=== PATIENT | male | born 2005 | race Caucasian/White ===

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

== ENCOUNTER 2024-07-22 07:41 | Emergency (ER) | payer OTHER, SELFPAY ==
[2024-07-22 07:42] VITALS: BP 119/64; PULSE 97; RESP 18; TEMP 37.6; O2SAT 95; BMI 17.7
--- NOTE | 2024-07-22 08:20 | EDS_ITS ---
HPI History of Present Illness Chief Complaint: Lower Extremity Injury Informant: patient and parent Onset/Context/Timing Onset: Yesterday Context: Gradual Onset Timing: Continuous Quality: Cramping Location: Lower extremities Worsened by: Nothing Relieved by: Nothing Narrative Narrative: Patient presents with lower extremity pain, aching, and cramping that began yesterday. Patient states he was diagnosed with sinusitis yesterday and started on Augmentin. Patient states he has general myalgias with this. Patient admits to a fever up to 101 at home. Patient admits to a sore throat. Patient admits to a cough but denies any shortness of breath. Patient describes his pain as cramping. Patient states that his it is lower extremities. Patient states she has not been eating much or drinking much fluid because of the sore throat. Patient and mother are concerned for possible dehydration. PFSH PFSH Medical History no medical history no medical history Home Medications ?Medication ?Instructions ?Recorded ?Last Taken ?Type NK 07/22/24 Unknown History Allergy/AdvReac Type Severity Reaction Status Date / Time No Known Allergies Allergy Verified 07/22/24 07:41 Surgical History no surgical history no surgical history Social History (Updated 07/22/24 @ 08:[address] Ming Celaya, DO) Electronic Cigarette Use: with nicotine alcohol intake: current alcohol intake frequency: a few times a month substance use type: marijuana ROS ROS ED Constitutional Constitutional ED: Reports chills and fever(s) Eyes Eyes: Denies blurry vision or change in vision ENT ENT ED: Reports sore throat; Denies rhinorrhea Cardiovascular Cardiovascular: Denies chest pain or palpitations Respiratory/Chest Respiratory/Chest: Reports cough; Denies dyspnea Gastrointestinal Gastrointestinal: Denies nausea or vomiting Genitourinary Genitourinary ED: Denies dysuria or hematuria Musculoskeletal Musculoskeletal: Reports back pain, myalgias and neck pain Integumentary Denies abscess or rash Neurologic Neurologic: Reports headache(s) and weakness Allergic/Immunologic Allergic/Immunologic ED: Denies mouth swelling or urticaria EXAM Physical Exam Const Vital Signs: 07/22/24 07:42 07/22/24 07:55 07/22/24 09:05 Temperature 99.6 F H 103 F H Temperature Source Temporal Oral Pulse Rate 97 Respiratory Rate 18 Respiratory Effort Normal Non-Labored Blood Pressure 119/64 Blood Pressure Mean 82 Pulse Ox 95 Oxygen Delivery Method Room Air 07/22/24 09:41 Temperature 99.9 F H Temperature Source Oral Pulse Rate 84 Respiratory Rate 20 H Respiratory Effort Blood Pressure 113/51 L Blood Pressure Mean 71 Pulse Ox 95 Oxygen Delivery Method Room Air Positive well nourished and well developed General Appearance ED: well developed and NAD HEENT Reports moist mucous membranes Neck supple and no JVD Resp normal respiratory effort and clear to auscultation bilaterally Cardio regular rate and regular rhythm GI non-tender and non-distended Palpation: soft Extremity normal to inspection General Extremety ED: Negative for edema or tenderness General Extremity: Negative for edema Neuro oriented x3, CN's II-XII intact bilaterally and no sensory deficits noted Sensorium / Orientation: alert Motor Exam: strength 5/5 throughout Psych mental status grossly normal MDM MDM MDM Narrative Medical decision making narrative: Differential diagnosis includes viral illness, dehydration, electrolyte abnormality, pneumonia, and bronchitis. COVID-19, influenza, and RSV PCR will be obtained to assess for viral illness. CBC will be obtained to assess for leukocytosis and anemia. Basic metabolic profile will be obtained to assess for electrolyte abnormality and renal function. Chest x-ray will be obtained to assess for pneumonia and bronchitis. Lab Data Attestation: I reviewed the patient's lab results. Lab results narrative: CBC was reviewed. White blood cell count was slightly low at 3.0. Hemoglobin was 12.9 and hematocrit was 37.0. Platelets were normal. Basic metabolic profile was reviewed and was essentially within normal limits. COVID-19 PCR was reviewed and was negative. Influenza PCR was reviewed and was positive for influenza A and negative for influenza B. RSV PCR was reviewed and was negative. Labs: Laboratory Results - last 24 hr 07/22/24 09:15 WBC 3.0 L RBC 4.30 L Hgb 12.9 L Hct 37.0 L MCV 86.0 MCH 30.0 MCHC 34.9 RDW Std Deviation 37.8 RDW Coeff of Virgen 12.1 Plt Count 160 MPV 11.9 Immature Gran % (Auto) 0.300 Neut % (Auto) 61.1 Lymph % (Auto) 13.1 L Canadian % (Auto) 25.2 H Eos % (Auto) 0.0 Baso % (Auto) 0.3 Absolute Neuts (auto) 1.8 L Absolute Lymphs (auto) 0.39 L Nucleated RBC % 0 Sodium 139 Potassium 3.8 Chloride 108 H Carbon Dioxide 25.0 Anion Gap 6 BUN 15 Creatinine 1.17 Estim Creat Clear Calc 86.97 Est GFR (MDRD) Af Amer 102 Est GFR (MDRD) Non-Af 84 BUN/Creatinine Ratio 12.8 Glucose 103 Calcium 8.9 Radiography Chest X-Ray - ED: 2 View, Read by ED Physician, Read by Radiologist and No Acute Disease Diagnostic Testing: Clinical Impression(s) from Imaging Studies Chest X-Ray 07/22/24 09:35 IMPRESSION: No acute cardiopulmonary process. Reading Location: [facility] [place] and lateral chest x-ray was obtained. There are 2 views. On my independent interpretation, lung reyes are clear. There is normal cardiac silhouette. Bony thorax is normal. There is no acute process noted. Radiologist also interpreted the x-ray and agrees. Treatment and Re-Evaluation :: Patient was given IV fluids. Patient was given a dose of Tylenol. Patient was advised of his findings. Patient was instructed to stop taking the Augmentin. Patient was instructed to drink plenty of fluids. Patient was instructed to continue Tylenol and ibuprofen as needed for any fever. The patient was instructed to follow-up with his primary care physician in 5 to 7 days. Patient understood and was agreeable with the plan. All questions were answered. Discharge Plan Triage Chief Complaint: Lower Extremity Injury Other Complaint: General Illness ED Provider: Ming Celaya Dx/Rx/DC Orders Clinical Impression: Influenza A, Fever Instructions: ED Influenza (Adult) Prescriptions: No Action NK Primary Care Provider: Care Physician,No Primary Referrals: Emiliano Faria MD [Non-Staff] - 5-7 Days Print Language: Chinese Disposition Disposition: Home, Self Care
[2024-07-22 09:05] VITALS: TEMP 39.4
[2024-07-22] MEDS: 0.9% Normal Saline (1000mL) 1,000 ML 1000 ML IV (09:13)
[2024-07-22] MEDS: Acetaminophen 500 MG Tablet 1000 MG PO (09:19)
[2024-07-22 09:29] LABS: Absolute Lymphocyte Count 0.39 X10^3/uL (0.83-4.51); Absolute Neutrophil Count 1.8 X10^3/uL (2.0-7.7); Basophil# 0.01 X10^3/uL; Basophil% 0.3 % (0-1); Hemoglobin 12.9 g/dL (13.0-16.5); Lymphocyte # 0.39 X10^3/ul (0.83-4.51); Lymphocyte % 13.1 % (19-41); Mean Corp Hgb Conc 34.9 g/dL (32-36); Mean Platelet Vol. 11.9 fl (6.2-12.0); Monocyte# 0.75 X10^3/uL; Monocyte% 25.2 % (0-10); NRBC Flagged by Analyzer 0 % (0-5); Neutrophil # 1.82 X10^3/uL (2.7-7.7); Neutrophil % 61.1 % (47-70); POSITIVE DIFFERENTIAL YES; Platelet Count 160 K/mm3 (150-450); RBC Distribution Width CV 12.1 % (11.6-14.6); RBC Distribution Width SD 37.8 fl (35.1-43.9)
[2024-07-22 09:30] LABS: Differential Indicated SCAN CRITERIA MET
--- NOTE | 2024-07-22 09:35 | RAD_ITS ---
EXAM: XR Chest, 2 Views CLINICAL INDICATION: TECHNIQUE: Frontal and lateral views of the chest. COMPARISON: No relevant prior studies available. FINDINGS: LUNGS AND PLEURAL SPACES: Unremarkable. No consolidation. No pneumothorax. HEART: Unremarkable. No cardiomegaly. MEDIASTINUM: Unremarkable. Normal mediastinal contour. BONES/JOINTS: Unremarkable. No acute fracture. RAD/Chest PA and Lateral IMPRESSION: No acute cardiopulmonary process. Reading Location[facility]
[2024-07-22 09:41] VITALS: BP 113/51; PULSE 84; RESP 20; TEMP 37.7; O2SAT 95
[2024-07-22 09:49] LABS: Anion Gap 6 (5-15); BUN 15 mg/dL (7-18); BUN/Creat Ratio 12.8 RATIO (10-20); Calcium,Total 8.9 mg/dL (8.5-10.1); Chloride 108 mmol/L (98-107); Creatinine, Serum 1.17 mg/dL (0.70-1.30); EST Glomerular Filtration Rate 84 mL/min (>60); Est Glom Filt Rate - Afr Amer 102 mL/min (>60); Estimated Creatinine Clearance 86.97 ml/min; Glucose 103 mg/dL (74-106); Potassium 3.8 mmol/L (3.5-5.1); Sodium Level 139 mmol/L (136-145)
[2024-07-22 10:02] VITALS: BP 111/52; PULSE 85; RESP 18; TEMP 37.7; O2SAT 95
[2024-07-25 13:40] LABS: Pathologist Review Reviewed
== END 2024-07-22 10:24 | disposition home or self-care (01) ==
PROVIDERS: Emergency Provider Emergency Medicine; Visit Provider Emergency Medicine
DX: J10.1 Influenza due to other identified influenza virus with other respiratory manifestations (principal); F17.290 Nicotine dependence, other tobacco product, uncomplicated; R25.2 Cramp and spasm; J32.9 Chronic sinusitis, unspecified; M79.661 Pain in right lower leg; M79.662 Pain in left lower leg
CPT/HCPCS: 71046; 80048; 85025; 87631; 96360; 99284; A4216